=== PATIENT | female | born 1980 | race Caucasian/White ===

== ENCOUNTER 2022-06-02 05:28 | Emergency (ER) | payer BC ==
[~2022-06-02] VITALS: Ht 167.6 cm; Wt 65.8 kg
--- NOTE | 2022-06-02 05:42 | NUR ---
Seeing and being examined by Dr. Mtz
[2022-06-02] MEDS ORDERED: MORPHINE SULFATE 4 MG/1 ML DISP.SYRIN IV ONE (05:45)
[2022-06-02] MEDS ORDERED: IV NS 1000 ML 1,000 ML IV ONE (05:45)
[2022-06-02] MEDS ORDERED: MORPHINE SULFATE 4 MG/1 ML DISP.SYRIN ONE (06:00)
[2022-06-02 06:05] LABS: HEMATOCRIT 33.2 % (31.2-41.9); MEAN CORPUSCULAR HEMOGLOBIN 32.3 uug (24.7-32.8); MEAN CORPUSCULAR VOLUME 93.1 fL (75.5-95.3); PLATELET COUNT (AUTO) 258 K/uL (179-408)
--- NOTE | 2022-06-02 06:17 | NUR ---
asked to urinate for ua, pt verbalized she can not urinate at this moment.
[2022-06-02 06:18] LABS: POTASSIUM 3.3 mmol/L (3.5-5.1)
[2022-06-02 06:23] LABS: BILIRUBIN,DIRECT 0.1 mg/dL (0.0-0.2); BILIRUBIN,TOTAL 0.3 mg/dL (0.2-1.0); TOTAL PROTEIN, SERUM 6.8 g/dL (6.4-8.2)
--- NOTE | 2022-06-02 08:00 | NUR ---
US complete at bedside. Urine specimen collected and sent to lab.
[2022-06-02 08:12] LABS: *BILIRUBIN,URIN NEGATIVE (NEGATIVE); *BLOOD, URINE 2+ (NEGATIVE); *CLARITY,URINE CLEAR (CLEAR); *COLOR,URINE YELLOW (YELLOW); *KETONES,URINE NEGATIVE (NEGATIVE); *URINE HCG, QUAL NEG (NEGATIVE); *UROBILINOGEN,URINE 0.2 E.U./dl (NORMAL); LEUKOCYTE ESTERASE ,URINE NEGATIVE (NEGATIVE); NITRITE, URINE NEGATIVE (NEGATIVE); UGLUCOSE NEGATIVE (NEGATIVE)
--- NOTE | 2022-06-02 08:58 | NUR ---
Patient discharged to home in stable condition. Written and verbal after care instructions given. Patient verbalizes understanding of instructions. Stressed follow up or return to ER for worsening s/s.
--- NOTE | 2022-06-02 08:58 | NUR ---
IV removed. Catheter intact and site benign. Pressure and 4x4 gauze applied to site. No bleeding noted.
[2022-06-02 13:07] LABS: BACTERIA,URINE NONE SEEN /HPF (NONE SEEN); RBC,URINE 0-3 /HPF (0-3); SQUAMOUS EPITHELIAL CELL,UR FEW /HPF (NONE SEEN)
== END 2022-06-02 08:59 | disposition home or self-care (01) ==
LOC: ER 06:53
DX: R10.33 Periumbilical pain (principal); R10.2 Pelvic and perineal pain
CPT/HCPCS: 99284; 96374; 76856; 80076; 80048; 81001; 84703; 83690; 85025; 84702; 36415; J2270; J7040; A4663